=== PATIENT | female | born 1990 | race Caucasian/White ===

== ENCOUNTER 2016-10-26 15:45 | Emergency (ER) | payer OTHER ==
[~2016-10-26] VITALS: Ht 152.4 cm; Wt 70.3 kg
[~2016-10-26 15:45] MED LIST: ADDERALL20 MG PO; ALBUTEROL0.09 MG/A1 INH; FLOMAX(MONOGRA0.4 MG PO; HYDROCODONE/ACE1 TA1 PO; LO LOESTRIN FE1 TAB PO; MEDROL DOSEPAK1 PAC PO; MINASTRIN 24 FE1 KIT PO; MOTRIN800 MG PO; PERCOCET 325 MG1 TA2 PO; ROBITUSSIN W/CO10 ML PO; TAMIFLU75 M1 PO; TESSALON PERLE100 MG PO; VYVANSE60 MG; ZOFRAN ODT4 MG SL; ZOFRAN4 M1 PO
[2016-10-26 15:54] VITALS: BP 143/88
--- NOTE | 2016-10-26 18:23 | ED INFLUENZA/URI COMPLAINT ---
History of Present Illness General Chief Complaint: Fever Stated Complaint: FEVER X 4 DAYS Source: patient Exam Limitations: no limitations Vital Signs & Intake/Output Vital Signs & Intake/Output Vital Signs Date Time Temp Pulse Resp B/P B/P Pulse O2 O2 Flow FiO2 Mean Ox Delivery Rate 10/26 1842 98.2 10/26 1839 98.2 10/26 1814 Room Air Room Air 10/26 1653 102.2 10/26 1554 102.2 114 18 143/88 97 Room Air Allergies Coded Allergies: Penicillins (RASH 09/01/15) romo (ANAPHYLAXIS 09/01/15) pineapple (ANAPHYLAXIS 09/01/15) Uncoded Allergies: EGGPLANT (ANAPHYLAXIS 09/01/15) Reconcile Medications Albuterol Sulfate (Albuterol Sulfate Hfa) 0.09 MG/Actuation HILARY 2 PUFF INH Q4- 6 PRN PRN SHORTNESS OF BREATH 90 MCG PER PUFF Benzonatate (Tessalon Perle) 100 MG SGL 1 TAB PO TID COUGH Ciprofloxacin HCl (Cipro) 500 MG TABLET 1 TAB PO BID UTI DEXTROAMPHETAMINE/AMPHETAMINE (Adderall 20 MG Tablet) 20 MG TAB 1 TAB PO TID PRN ADHD (Reported) Ibuprofen (Motrin) 800 MG TAB 1 TAB PO TID PRN PAIN Ketorolac Tromethamine 10 MG TABLET 1 TAB PO TID PRN PAIN/INFLAMMATION RECEIVED im IN er Lisdexamfetamine Dimesylate (Vyvanse) (Unknown Strength) CAP (Unknown Dose) UNKNOWN (Reported) Methylprednisolone. (Medrol) 1 PAC PAC 1 PAC PO AD INFLAMMATION NORETHINDRONE-E.ESTRADIOL-IRON (Lo Loestrin Fe 1-10 Tablet) 1MG-10(24) TABLET 1 TAB PO DAILY CONTROL (Reported) NORETHINDRONE-E.ESTRADIOL-IRON (Minastrin 24 Fe Chewable Tab) 1 KIT KIT 1 TAB PO DAILY CONTROL (Reported) Ondansetron (Zofran Odt) 4 MG ODT 1 TAB PO Q4-6 PRN NAUSEA Oseltamivir Phosphate (Tamiflu) 75 MG CAPSULE 1 CAP PO BID infection OXYCODONE HCL/ACETAMINOPHEN (Percocet 5-325 MG Tablet) 325 MG/5 MG TAB 1 TAB PO Q4-6 PRN PRN BREAKTHROUGH PAIN Robitussin AC (Guaifenesin-Codeine Syrup) 10 ML UDC 5 ML PO Q6 COUGH Tamsulosin Hydrochloride (Flomax) 0.4 MG CAP 1 CAP PO DAILY KIDNEY STONE Triage Note: PT TO TRIAGE WITH C/O SORE THROAT, COUGH, FEVER, NO APPETITE x5DAYS. [facility], STREP TEST WAS NEGATIVE. TEMP 102.2 IN TRIAGE. Triage Nurses Notes Reviewed? yes Onset: Gradual Duration: intermittent Timing: recent history Severity: severe Severity Numbers: 7 : No Patient currently breastfeeds: No HPI: Patient is a 26-year-old female with an unremarkable past medical history extensive emergency with a four-day history of recurrent fevers and chills. Patient has been taking Tylenol and Motrin with mild relief of symptoms. Patient complains of intermittent cough and initially had sore throat however this is gone. Patient does complain of body aches and muscle aches. Denies any current chest pain arm pain jaw pain nausea vomiting abdominal pain Patient does have frequency of urination Patient is able tolerate by mouth Patient does state that she received negative rapid strep from previous evaluation at urgent care facility a few days ago. Denies any past similar sick contacts. (HERIBERTO LOPEZ) Past History Travel History Traveled to [place] past 21 day No Medical History Any Pertinent Medical History? see below for history Neurological: NONE EENT: NONE Cardiovascular: NONE Respiratory: NONE Gastrointestinal: NONE Hepatic: NONE Renal: NONE Musculoskeletal: NONE Psychiatric: ADHD Endocrine: NONE Surgical History Surgical History: non-contributory Psychosocial History What is your primary language Swedish Tobacco Use: Never used Family History Hx Contributory? No (HERIBERTO LOPEZ) Review of Systems Review of Systems Constitutional: Reports: see HPI, fever. EENTM: Reports: see HPI. Respiratory: Reports: see HPI. Cardiovascular: Reports: no symptoms. GI: Reports: no symptoms. Genitourinary: Reports: no symptoms. Musculoskeletal: Reports: see HPI, joint pain, muscle pain. Skin: Reports: no symptoms. Neurological/Psychological: Reports: no symptoms. Hematologic/Endocrine: Reports: no symptoms. Immunologic/Allergic: Reports: no symptoms. All Other Systems: Reviewed and Negative (HERIBERTO LOPEZ) Physical Exam Physical Exam General Appearance: no apparent distress, alert, comfortable Ears, Nose, Throat: normal ENT inspection, moist mucous membrane, hearing grossly normal, Tympanic normal, pharynx normal Comments: Well-developed well-nourished person in no acute distress HEENT: Normal EENT exam, extraocular motion intact, no nystagmus. Pupils equally round and reactive to light and accommodation. Nose is atraumatic. External auditory canal and Tympanic membranes clear. Pharynx normal. No swelling or edema. Neck: Supple, no lymphadenopathy, normal range of motion without pain or tenderness Back: Nontender, no CVA tenderness. Full range of motion Cardiovascular: Regular rate and rhythms no murmurs rubs or gallops, normal JVP Respiratory: Chest nontender. No respiratory distress.breath sounds clear to auscultation bilaterally Abdomen: Soft, nontender nondistended, no appreciable organomegaly. Normal bowel sounds. No ascites Extremity: No edema, no calf tenderness to palpation, normal and equal pulses. Neuro: Alert oriented x3, motor sensory normal, cranial nerves II through XII grossly intact Negative Brudzinski negative Kernig sign. Skin: No appreciable rash on exposed skin, skin is warm and dry. Psych: Mood and affect is normal, memory and judgment is normal. Core Measures Severe Sepsis Present: No Septic Shock Present: No (JOHN KNIGHT,HERIBERTO) Progress Differential Diagnosis: influenza, meningitis, neutropenia, otitis, pneumonia, pharyngitis, sinusitis Plan of Care: Orders Procedure Date/time Status Add-on Test (ER Only) 10/26 1902 Active URINE 10/26 1823 Complete URINALYSIS 10/26 1823 Complete RAPID VIRAL INFLUENZA A 10/26 1609 Complete THROAT CULTURE W/QUICK STREP 10/26 1609 Active Laboratory Tests 10/26/16 1840: Urinalysis LIGHT H, Urine Color YEL, Urine Clarity HAZY H, Urine pH 7.5, Ur Specific Bearden 1.015, Urine Protein TRACE H, Urine Ketones 15 H, Urine Nitrite NEG, Urine Bilirubin NEG, Urine Urobilinogen 0.2, Ur Leukocyte Esterase MOD H, Ur Microscopic SEDIMENT EXAMINED, Urine RBC 3-5, Urine WBC 5-10 H, Ur Epithelial Cells MOD H, Urine Bacteria MANY H, Urine Mucus FEW, Urine Hemoglobin MOD H, Urine Glucose NEG, Urine Test NEGATIVE Microbiology 10/26 1651 NASOPHARYN: Influenza Virus A & B Rapid Smear - COMP Patient does present with vague symptoms of not feeling well fevers chills and body aches influenza was negative. Patient declined and refused the rapid strep. ENT exam was unremarkable nontender abdomen patient was not clear lungs to auscultation patient had resolved fever IV fluid resuscitation was administered and ketorolac was administered. No concern of meningitis. Patient was in no apparent distress. Patient was strongly advised to follow up with primary care doctor in 2 days if no better. Patient's urine culture is pending which she will be treated for concerns of UTI concerns of pyelonephritis. Patient is able tolerate by mouth upon discharge (HERIBERTO LOPEZ) Initial ED EKG: none (HERIBERTO LOPEZ) Departure Departure Disposition: HOME OR SELF CARE Condition: Stable Clinical Impression Primary Impression: Viral syndrome Secondary Impressions: Fever, Headache Referrals: WHIT ALDRIDGE MD (PCP/Family) Additional Instructions: As discussed begin drinking plenty of water for hydration. Begin the prescription and ketorolac for pain and inflammation and headaches. Continue [id number] Tylenol for fevers. Begin the prescription of ciprofloxacin as directed for your symptoms. Prescriptions are waiting a [facility] pharmacy. If no better in 2 days follow-up with your primary care doctor. If symptoms worsen return to emergency room Departure Forms: Customer Survey General Discharge Information Prescriptions: Current Visit Scripts Ketorolac Tromethamine 1 TAB PO TID PRN PAIN/INFLAMMATION #15 TAB RECEIVED im IN er Ciprofloxacin HCl (Cipro) 1 TAB PO BID #14 TAB (HERIBERTO LOPEZ) PA/STEAMING CABINET TENDER Co-Sign Statement Statement: ED Attending supervision documentation- [] I saw and evaluated the patient. I have also reviewed all the pertinent lab results and diagnostic results. I agree with the findings and the plan of care as documented in the PA's/STEAMING CABINET TENDER's documentation. [X] I have reviewed the ED Record and agree with the PA's/STEAMING CABINET TENDER's documentation. [] Additions or exceptions (if any) to the PAs/STEAMING CABINET TENDER's note and plan are summarized below: [] (MER NEWELL,RALPH)
[2016-10-26] MEDS ORDERED: CIPRO500 M1 PO (19:07)
[2016-10-26] MEDS ORDERED: KETOROLAC TROME10 M1 PO (19:07)
== END 2016-10-26 19:33 ==
LOC: ERH 15:45
DX: B34.9 Viral infection, unspecified (principal); R51 Headache; R50.9 Fever, unspecified
CPT/HCPCS: 81001; 81025; 87804; 87804-59; 96374; J1885